=== PATIENT | female | born 1965 | race Caucasian/White ===

== ENCOUNTER 2018-03-23 10:35 | Day surgery (SDC) | payer BC ==
[2018-03-23] MEDS ORDERED: D5 LR 1000 ML 1,000 ML IV ONE (11:08)
[2018-03-23] MEDS ORDERED: DIPRIVAN VIAL 20 ML ONE (12:08)
[2018-03-23] MEDS ORDERED: DIPRIVAN VIAL 10 ML ONE (12:52)
[2018-03-23 13:32] VITALS: BP 140/61
== END 2018-03-23 13:33 | disposition home or self-care (01) ==
LOC: SURG1 10:35
PROVIDERS: ATTEND Internal Medicine Gastroenterology
PROC: 0DBE8ZX Excision of Large Intestine, Via Natural or Artificial Opening Endoscopic, Diagnostic (ICD-10-PCS; principal; 2018-03-23 17:15)
PROC: 0DJD8ZZ Inspection of Lower Intestinal Tract, Via Natural or Artificial Opening Endoscopic (ICD-10-PCS; principal; 2018-03-23 17:15)
PROC: 0DBK8ZX Excision of Ascending Colon, Via Natural or Artificial Opening Endoscopic, Diagnostic (ICD-10-PCS; principal; 2018-03-23 17:15)
DX: R10.31 Right lower quadrant pain (principal); R10.32 Left lower quadrant pain; R19.4 Change in bowel habit; R63.4 Abnormal weight loss; K63.5 Polyp of colon; K57.30 Diverticulosis of large intestine without perforation or abscess without bleeding; K64.0 First degree hemorrhoids; Z86.010 Personal history of colon polyps; D12.2 Benign neoplasm of ascending colon
CPT/HCPCS: A4217; J3490; J7120